=== PATIENT | male | born 1970 | race Caucasian/White ===

== ENCOUNTER 2019-05-28 10:02 | Observation (INO) ==
--- NOTE | 2019-05-28 10:08 | Emergency Department Note ---
Disposition Clinical Impression: Facial cellulitis Disposition: Admitted As Inpatient Condition: Good Time of Disposition: 13:30 Dental HPI - General Chief complaint: ED Dental/Oral Stated complaint: dental pain Time Seen by Provider: 05/28/19 10:08 Source: patient Mode of arrival: private vehicle Limitations: no limitations Nursing Notes Reviewed: Yes Vital Signs Reviewed: Yes - History of Present Illness HPI Narrative: 48-year-old male brought in today by his caregiver for some fevers chills and not feeling well at home. He is complaining of jaw and dental pain. He had 2 teeth pulled yesterday at [facility] in [facility]. She states that there is difficulty even getting him completely numbed. They told her there is no infection and they did not start him on any antibiotics. This morning he woke up and he just was not himself. He states that when he puts his teeth together it hurts. He states no other symptoms. She noted that he is more swollen on that right side of his face where the dental extractions were. Pt Subjective Complaint: dental pain - Related Data Home Medications Medication Instructions Recorded Confirmed lamoTRIgine [Lamictal] 50 mg PO BID 12/28/15 05/28/19 Divalproex (24 HR) [Depakote ER 1,500 mg PO BID 01/25/16 05/28/19 (24 HR)] Omeprazole [PriLOSEC] 20 mg PO DAILY 01/25/16 05/28/19 Aspirin [Lo-Dose Aspirin EC] 81 mg PO DAILY 01/14/19 05/28/19 Loratadine [Claritin] 10 mg PO DAILY 01/14/19 05/28/19 Metformin HCl [Fortamet] 1,000 mg PO DAILY 01/14/19 05/28/19 Previous Rx's Medication Instructions Recorded Gabapentin [Neurontin] 400 mg PO TID #90 capsule 04/30/16 [place] Carbonate 300 mg PO BID 365 Days 04/30/16 Potassium Chloride 10 meq PO DAILY #30 tab.er.prt 04/30/16 carBAMazepine [Tegretol] 400 mg PO BID tablet 04/30/16 Olopatadine HCl [Patanol] 1 drop OP BID #1 drops 06/16/17 Ondansetron ODT [Zofran ODT] 4 mg SL Q6HR PRN #8 tab.rapdis 01/14/19 Promethazine [Phenergan] 25 mg PO Q6HR PRN #16 tablet 01/14/19 Allergies Allergy/AdvReac Type Severity Reaction Status Date / Time Neomycin Allergy Hives Verified 01/14/19 09:02 oseltamivir [From Tamiflu] Allergy Hives Verified 01/14/19 09:02 Review of Systems: All other systems are negative except as noted/marked Chart generated with voice recognition software Nursing notes reviewed Old records reviewed Past Medical History - Past Medical History Attestation: Yes The following information was validated with the patient. Source: patient, old records reviewed, nursing notes reviewed Medical history: Reports: diabetes, hypertension, seizures, other Surgical history: Reports: orthopedic, other (Left arm surgery) Psychiatric history: Reports: no psych history - Social History Smoking Status: Never smoker Smokeless Tobacco Status: No Alcohol use: Reports: none Drug use: Reports: none Physical Exam - General Limitations: no limitations General appearance: alert, in no apparent distress - Head Head exam: normocephalic, normal inspection - Eye Eye exam: Present: normal appearance, PERRL, EOMI - ENT ENT exam: normal exam, normal oropharynx, mucous membranes moist, other (Patient has no bleeding at the site of extraction in the right mandible tenderness to palpation under the mount mandible with indurated skin, warm) - Neck Neck exam: Present: normal inspection, full ROM, trachea midline - Chest Chest inspection: Present: normal inspection, symmetric chest wall rise - Respiratory Respiratory exam: Present: normal lung sounds bilaterally - Cardiovascular Cardiovascular exam: Present: normal rhythm, tachycardia, normal heart sounds - Abdominal Exam Abdominal exam: Present: soft, Non-Tender, normal bowel sounds. Absent: tenderness, distention, guarding, rebound, rigidity - Extremities Exam Extremities exam: Present: normal inspection, full ROM, normal capillary refill. Absent: tenderness, pedal edema - Back Exam Back exam: Present: normal inspection, full ROM. Absent: tenderness - Neurological Exam Neurological exam: Present: alert, oriented X3, CN II-XII intact - Psychiatric Psychiatric exam: Present: normal affect, normal mood - Skin Skin exam: Present: warm, dry, intact, normal color Course Vital Signs Temperature 99.2 F 05/28/19 10:04 Pulse Rate 115 05/28/19 10:04 Respiratory Rate 18 05/28/19 10:04 Blood Pressure 128/80 05/28/19 10:04 O2 Sat by Pulse Oximetry 93 05/28/19 10:04 Temperature 99.2 F 05/28/19 10:04 Pulse Rate 90 05/28/19 13:32 Respiratory Rate 18 05/28/19 13:32 Blood Pressure 106/69 05/28/19 13:32 O2 Sat by Pulse Oximetry 94 05/28/19 13:32 Oxygen Delivery Oxygen Delivery Room Air Dental/Oral - MDM Narrative Medical decision making narrative: 48-year-old male presents today with some right-sided lower facial swelling and pain and fever since a dental extraction done yesterday. He has mild elevation of his white count and lactic is elevated. Given that he had some concern for infection versus ophthalmitis versus abscess on arrival lab work and CAT scans were ordered. Clindamycin was started patient was given a Apex for pain control. Patient developed some lightheadedness and funny feeling after receiving those medicines and may be a light rash over his face. Given some Be nadryl stop the clindamycin at that time. Unclear whether he was having a true reaction to the clindamycin refuses feeling funny from the Apex. We did give him some Zofran she felt a little nauseated. He is resting comfortably in his vitals have been stable since that time. His repeat lactic after a liter of fluid remained elevated. Given this I thought that he probably needed to come into the hospital for that facial cellulitis. I spoke with Dr. Resendez who agreed and would change his antibiotic for the next dose to a penicillin-based. - Medical Records Medical records reviewed: Yes I reviewed the patient's medical records. - Lab Data Lab results reviewed: Yes I reviewed the patient's lab results. Result diagrams: 05/28/19 10:35 05/28/19 10:35 Lab Results 05/28/19 05/28/19 05/28/19 Range/Units 10:35 10:35 10:35 WBC 7.9 (4.3-11.1) K/mcL RBC 4.81 (4.19-5.50) M/mcL Hgb 15.0 (12.9-16.9) g/dL Hct 45.1 (37.5-50.1) % MCV 93.8 (83.0-100.0) fL MCH 31.2 (28.0-33.3) pg MCHC 33.3 (31.6-35.5) g/dL RDW 13.9 (11.5-14.5) % Plt Count 254 (140-400) K/mcL MPV 9.3 L (9.4-12.4) fL Immature Gran % 0.3 (0-4) % Seg Neutrophils % 81.7 % Lymphocytes % 8.4 % Monocytes % 8.2 % Eosinophils % 0.9 % Basophils % 0.5 % Neutrophils # 6.5 (1.6-8.9) K/mcL Lymphocytes # 0.7 (0.6-4.6) K/mcL Monocytes # 0.7 (0.0-1.3) K/mcL Eosinophils # 0.1 (0.0-0.6) K/mcL Basophils # 0.0 (0.0-0.2) K/mcL PT 11.4 (9.4-12.1) Seconds INR 1.0 Sodium 138 (136-145) mEq/L Potassium 5.2 H (3.5-5.1) mEq/L Chloride 102 (98-107) mEq/L Carbon Dioxide 28 (23-29) mEq/L BUN 5 L (6-20) mg/dL Creatinine 1.00 (0.70-1.30) mg/dL Est GFR ( Amer) > 60 (> 60) Est GFR (Non-Af Amer) > 60 (> 60) BUN/Creatinine Ratio 5 L (6-26) Glucose 151 H (70-105) mg/dL Calculated Osmolality 286 (280-300) Lactic Acid (0.5-2.2) mmol/L Calcium 9.3 (8.6-10.3) mg/dL 05/28/19 05/28/19 Range/Units 10:35 12:05 WBC (4.3-11.1) K/mcL RBC (4.19-5.50) M/mcL Hgb (12.9-16.9) g/dL Hct (37.5-50.1) % MCV (83.0-100.0) fL MCH (28.0-33.3) pg MCHC (31.6-35.5) g/dL RDW (11.5-14.5) % Plt Count (140-400) K/mcL MPV (9.4-12.4) fL Immature Gran % (0-4) % Seg Neutrophils % % Lymphocytes % % Monocytes % % Eosinophils % % Basophils % % Neutrophils # (1.6-8.9) K/mcL Lymphocytes # (0.6-4.6) K/mcL Monocytes # (0.0-1.3) K/mcL Eosinophils # (0.0-0.6) K/mcL Basophils # (0.0-0.2) K/mcL PT (9.4-12.1) Seconds INR Sodium (136-145) mEq/L Potassium (3.5-5.1) mEq/L Chloride (98-107) mEq/L Carbon Dioxide (23-29) mEq/L BUN (6-20) mg/dL Creatinine (0.70-1.30) mg/dL Est GFR ( Amer) (> 60) Est GFR (Non-Af Amer) (> 60) BUN/Creatinine Ratio (6-26) Glucose (70-105) mg/dL Calculated Osmolality (280-300) Lactic Acid 2.4 H 2.3 H (0.5-2.2) mmol/L Calcium (8.6-10.3) mg/dL - Radiology Data Radiology results reviewed: Yes I reviewed the patient's radiology results. EXAMINATION: CT OF THE NECK SOFT TISSUE WITH CONTRAST 05/28/2019 TECHNIQUE: CT of the neck was performed with the administration of intravenous contrast. Multiplanar reformatted images are provided for review. Dose modulation, iterative reconstruction, and/or weight based adjustment of the mA/kV was utilized to reduce the radiation dose to as low as reasonably achievable. COMPARISON: None. HISTORY: ORDERING SYSTEM PROVIDED HISTORY: recent dental extraction, fever, swelling R mandib 75 ml of iosovue 370 FINDINGS: PHARYNX/LARYNX: The nasopharynx, oral cavity, oropharynx, hypopharynx, and laryngeal structures are unremarkable. No evidence of retropharyngeal fluid, or abscess. Evaluation of the oral cavity and oropharynx is somewhat limited due to extensive streak artifact from dental amalgam. SALIVARY GLANDS/THYROID: The parotid glands, and submandibular glands are unremarkable. Thyroid gland appears unremarkable. LYMPH NODES: No evidence of significant cervical lymphadenopathy. No evidence of supraclavicular lymphadenopathy. SOFT TISSUES: Small amount of soft tissue swelling is noted along the right mandible. No convincing evidence of sizable fluid collection within limitation of this examination. There is extensive streak artifact adjacent to the mandible. BRAIN/ORBITS/SINUSES: No gross evidence of acute abnormality within the visualized portion of the brain. Mucosal thickening within right maxillary sinus. No significant mastoid opacification. No evidence of air-fluid levels in the visualized portion of the paranasal sinuses. The orbits are unremarkable. There is retropharyngeal course of the carotid arteries bilaterally. LUNG APICES/SUPERIOR MEDIASTINUM: Nonspecific ground-glass pulmonary opacities at the lung apices bilaterally. No significant superior mediastinal lymphadenopathy. BONES: Multiple empty sockets involving the mandible bilaterally. There are also empty sockets involving the maxilla. Patient reports recent dental extractions. CT/CT soft tissue neck w con IMPRESSION: Small amount of soft tissue swelling along the right mandible, without evidence of discrete drainable abscess. Please note evaluation is limited due to streak artifact from dental amalgam. Multiple empty tooth sockets involving maxillary and mandibular teeth, with history of dental extractions. Nonspecific ground-glass pulmonary opacities at the lung apices. Findings may represent mild interstitial edema with possibility of atypical infection not excluded. D/ / 05/28/2019 13:23:11 Eldon Pichardo MD / magn[employer] Interpreting Provider: Eldon Pichardo MD
[2019-05-28] MEDS ORDERED: 0.9 % Sodium Chloride 1,000 ML IV ONE (10:17)
[2019-05-28] MEDS ORDERED: *HR* HYDROcodone/Acet 5/325 mg TABLET PO ONE (10:17)
[2019-05-28] MEDS ORDERED: Clindamycin 900 MG/50 ML 900 MG/50 ML IV.SOLN IVPB ONE (10:17)
[2019-05-28] MEDS ORDERED: Isovue-370 500 ML BOTTLE IVP ONE (10:17)
[2019-05-28 10:44] LABS: Basophils % 0.5 %; Eosinophils # 0.1 K/mcL (0.0-0.6); Eosinophils % 0.9 %; Hematocrit 45.1 % (37.5-50.1); Immature Granulocytes % 0.3 % (0-4); Lymphocytes # 0.7 K/mcL (0.6-4.6); Lymphocytes % 8.4 %; Mean Corpuscular HGB Conc 33.3 g/dL (31.6-35.5); Mean Corpuscular Hemoglobin 31.2 pg (28.0-33.3); Mean Corpuscular Volume 93.8 fL (83.0-100.0); Mean Platelet Volume 9.3 fL (9.4-12.4); Monocytes # 0.7 K/mcL (0.0-1.3); Monocytes % 8.2 %; Neutrophils # 6.5 K/mcL (1.6-8.9); Platelet Count 254 K/mcL (140-400); Red Blood Count 4.81 M/mcL (4.19-5.50); Red Cell Distribution Width 13.9 % (11.5-14.5); Segmented Neutrophils % 81.7 %; White Blood Count 7.9 K/mcL (4.3-11.1)
[2019-05-28 10:52] LABS: Prothrombin Time 11.4 Seconds (9.4-12.1)
[2019-05-28 11:00] LABS: BUN/Creatinine Ratio 5 (6-26); Blood Urea Nitrogen 5 mg/dL (6-20); Calcium 9.3 mg/dL (8.6-10.3); Carbon Dioxide 28 mEq/L (23-29); Chloride 102 mEq/L (98-107); Glucose 151 mg/dL (70-105); Osmolality,Calculated 286 (280-300); Potassium 5.2 mEq/L (3.5-5.1); Sodium 138 mEq/L (136-145); eGFR For African Americans > 60 (> 60); eGFR For Non-African Americans > 60 (> 60)
[2019-05-28] MEDS ORDERED: Ondansetron 4 MG/2 ML VIAL IVP STA (11:26)
[2019-05-28] MEDS ORDERED: Mag Hydrox/Al Hydrox/Simeth 30 ML UDC PO PRN (13:58)
[2019-05-28] MEDS ORDERED: Naloxone 0.4 MG/ML INJ IVP PRN (13:58)
[2019-05-28] MEDS ORDERED: Ondansetron 4 MG/2 ML VIAL IVP PRN (13:58)
[2019-05-28] MEDS ORDERED: Ibuprofen 400 MG TABLET PO PRN (13:58)
[2019-05-28] MEDS ORDERED: traMADol 50 MG TABLET PO PRN (13:58)
[2019-05-28] MEDS ORDERED: 0.9 % Sodium Chloride 1,000 ML IVC SCH (13:58)
[2019-05-28] MEDS ORDERED: MOM Conc 10 ML UD.LIQ PO PRN (13:58)
[2019-05-28] MEDS: Gabapentin 400 MG CAPSULE PO SCH ×2 (14:54→20:38)
[2019-05-28] MEDS: Piperacillin/Tazobactam 3.375 GM in 0.9 % Sodium Chloride Mini Bag 100 ML IVPB SCH (14:54)
[2019-05-28] MEDS: *HR* Metformin 500 MG TABLET PO SCH (16:14)
[2019-05-28] MEDS: lamoTRIgine 25 MG TABLET PO SCH (20:38)
[2019-05-28] MEDS: Lactobacillus 1 EACH CAP.SPRINK PO SCH (20:38)
[2019-05-28] MEDS: carBAMazepine 200 MG TABLET PO SCH (20:38)
[2019-05-28] MEDS: Lithium Carbonate 300 MG CAPSULE PO SCH (20:38)
[2019-05-28] MEDS: [UNRECOGNIZED DRUG - OTHER] OP SCH (20:39)
[2019-05-28] MEDS ORDERED: Divalproex (12 HR) 250 MG TABLET PO SCH (21:00)
[2019-05-29] MEDS: Piperacillin/Tazobactam 3.375 GM in 0.9 % Sodium Chloride Mini Bag 100 ML IVPB SCH (00:03)
[2019-05-29 06:24] VITALS: BP 102/64
[2019-05-29 08:02] LABS: Basophils % 0.5 %; Eosinophils # 0.1 K/mcL (0.0-0.6); Eosinophils % 1.5 %; Hematocrit 38.9 % (37.5-50.1); Hemoglobin 12.4 g/dL (12.9-16.9); Immature Granulocytes % 0.5 % (0-4); Lymphocytes # 1.8 K/mcL (0.6-4.6); Lymphocytes % 32.5 %; Mean Corpuscular HGB Conc 31.9 g/dL (31.6-35.5); Mean Corpuscular Volume 97.3 fL (83.0-100.0); Mean Platelet Volume 9.5 fL (9.4-12.4); Monocytes # 0.6 K/mcL (0.0-1.3); Monocytes % 10.8 %; Platelet Count 213 K/mcL (140-400); Red Cell Distribution Width 14.3 % (11.5-14.5); Segmented Neutrophils % 54.2 %; White Blood Count 5.5 K/mcL (4.3-11.1)
[2019-05-29 08:19] LABS: BUN/Creatinine Ratio 6 (6-26); Blood Urea Nitrogen 6 mg/dL (6-20); Calcium 8.5 mg/dL (8.6-10.3); Carbon Dioxide 31 mEq/L (23-29); Chloride 107 mEq/L (98-107); Glucose 118 mg/dL (70-105); Osmolality,Calculated 293 (280-300); Potassium 4.6 mEq/L (3.5-5.1); Sodium 142 mEq/L (136-145); eGFR For African Americans > 60 (> 60); eGFR For Non-African Americans > 60 (> 60)
--- NOTE | 2019-05-29 08:24 | Internal Med History&Physical ---
Date of Encounter: 05/29/19 Time of Encounter: 07:55 Assessment and Plan (1) Dental infection Current visit: Yes Status: Acute He was given IV clindamycin in emergency room but had possible allergic reaction. Clindamycin was discontinued and he was given Benadryl and changed to IV Zosyn. He states he feels significantly improved at present time and stable for discharge home. Internal Medicine - H&P: HPI Chief complaint: Chills Admitted From: Emergency Dept Plans for Post Hospital Care: Home History of present illness: Mr. Rodas is a 48 year old male who came to emergency room stating he had trouble teeth extracted . On Friday morning he awakened with "teeth chattering" and felt chilled. He reports he was not given antibiotics at the time of extraction. He was evaluated in emergency room where CBC showed normal WBC but left shift present. Lactic acid was elevated at 2.4. He was given a dose of IV clindamycin and admitted to [facility] floor for ongoing care needs. He states he feels improved now and back to his baseline except for slight "tooth pain". Past Med Surg Social Fam HX - Past Medical History Medical history: diabetes, hypertension, seizures, other Additional medical history: developmental delayed Psychiatric history: no psych history - Past Surgical History Surgical History: orthopedic, other (Left arm surgery) Additional surgical history: left arm. PT STATES HE SWALLOWED A CRAYON AND HAD TO HAVE IT SURGICALLY REMOVED - Social History Smoking Status: Never smoker Smokeless Tobacco Status: No Alcohol use: none Drug use: none - Family History Father Family Member Ethnicity: Non- Living Status: Still Living Hx Family Cardiac Disorders: No Hx Family Respiratory Disorders: No Hx Family Cancer: No Hx Family GI Disorders: No Hx Family Endocrine Disorder: No Hx Family Neuromuscular Disorders: No Hx Family Neurologic Disorders: No Hx Family HEENT Disorders: No Hx Family Autoimmune Disorders: No Internal Medicine - H&P: Meds lamoTRIgine [Lamictal] 50 mg PO BID 12/28/15 [History] Divalproex (24 HR) [Depakote ER (24 HR)] 1,500 mg PO BID 01/25/16 [History] Omeprazole [PriLOSEC] 20 mg PO DAILY 01/25/16 [History] Gabapentin [Neurontin] 400 mg PO TID #90 capsule 04/30/16 [Rx] [place] Carbonate 300 mg PO BID 365 Days 04/30/16 [Rx] Potassium Chloride 10 meq PO DAILY #30 tab.er.prt 04/30/16 [Rx] carBAMazepine [Tegretol] 400 mg PO BID tablet 04/30/16 [Rx] Olopatadine HCl [Patanol] 1 drop OP BID #1 drops 06/16/17 [Rx] Aspirin [Lo-Dose Aspirin EC] 81 mg PO DAILY 01/14/19 [History] Loratadine [Claritin] 10 mg PO DAILY 01/14/19 [History] Metformin HCl [Fortamet] 1,000 mg PO DAILY 01/14/19 [History] Ondansetron ODT [Zofran ODT] 4 mg SL Q6HR PRN #8 tab.rapdis 01/14/19 [Rx] Promethazine [Phenergan] 25 mg PO Q6HR PRN #16 tablet 01/14/19 [Rx] Allergy/AdvReac Type Severity Reaction Status Date / Time Neomycin Allergy Hives Verified 01/14/19 09:02 oseltamivir [From Tamiflu] Allergy Hives Verified 01/14/19 09:02 Poison Radha Extract Allergy Rash Verified 05/28/19 14:34 All Systems PM: A 10-system review of systems was performed and is negative for pertinent findings except as documented above in the HPI. Review of systems: Review of systems from his December 2015 [facility] hospitalization were reviewed and revised as below. Gen.: His weight has remained stable at approximately 140 kg since December 2015 hospitalization. Cardiovascular: Denies hypertension [place] heart failure angina DVT or pulmonary embolus. Respiratory: He is a lifelong nonsmoker and has no known chronic lung disease. GI: Denies disorders of his liver gallbladder or exocrine pancreas : Denies hematuria dysuria or kidney stones Neurologic: He states he has history of seizures. He reports his last seizure was several years ago. He denies large distribution strokes. Endocrine: Denies known diabetes thyroid disease or hyperlipidemia Hematology/oncology: Denies blood disorders cancers or anemia. Psychiatric: He follows at mental health clinic but is uncertain of his diag nosis. [place] skeletal: He denies known gout arthritis or osteoporosis - Constitutional Vitals: Temp Pulse Resp BP Pulse Ox 98.3 F 74 20 102/64 96 05/29/19 06:21 05/29/19 06:21 05/29/19 06:21 05/29/19 06:21 05/29/19 06:21 Exam: Gen.: He is a well-developed obese male lying in bed who appears in no acute d istress HEENT: Head is atraumatic and normocephalic. Eyes: EOMI. There is no scleral icterus. Mouth: Mucosa is moist. He has had multiple dental extractions. Recent extractions sites show no drainage. Neck: Supple and nontender. There is no thyromegaly or adenopathy noted. Heart: Regular without murmurs gallops or ectopics. Lungs: No wheezes or crackles are heard. Abdomen: Soft and nontender. No masses or guarding are noted. Extremities: There is no cyanosis edema or clubbing noted. Dorsalis pedis and posterior tibial pulses are 1-2 over 2 bilaterally. Neurologic: Mental status: He is talkative and a fair historian. He does not know some details of his medical history. Cranial nerves: Smile is symmetric. Forehead wrinkles bilaterally. Tongue protrudes midline. EOMI. Motor: There is no pronator drift. Cerebellar: Finger to nose is intact bilaterally. Skin: Warm and dry Internal Med - H&P Results - Labs CBC & Chem 7: 05/29/19 07:49 05/29/19 07:49 Labs: Short CBC 05/28/19 05/29/19 Range/Units 10:35 07:49 WBC 7.9 5.5 (4.3-11.1) K/mcL Hgb 15.0 12.4 L D (12.9-16.9) g/dL Hct 45.1 38.9 (37.5-50.1) % Plt Count 254 213 (140-400) K/mcL Neutrophils # 6.5 3.0 (1.6-8.9) K/mcL BMP 05/28/19 05/29/19 10:35 07:49 Sodium 138 142 Potassium 5.2 H 4.6 Chloride 102 107 Carbon Dioxide 28 31 H BUN 5 L 6 Creatinine 1.00 1.00 Glucose 151 H 118 H Calcium 9.3 8.5 L - Impressions ITS Impressions Soft Tissue Neck CT 05/28/19 10:17 IMPRESSION: Small amount of soft tissue swelling along the right mandible, without evidence of discrete drainable abscess. Please note evaluation is limited due to streak artifact from dental amalgam. Multiple empty tooth sockets involving maxillary and mandibular teeth, with history of dental extractions. Nonspecific ground-glass pulmonary opacities at the lung apices. Findings may represent mild interstitial edema with possibility of atypical infection not excluded. D/ / 05/28/2019 13:23:11 Eldon Pichardo MD / [employer] Interpreting Provider: Eldon Pichardo MD
--- NOTE | 2019-05-29 08:36 | Discharge Summary ---
Orders not resulted at time of discharge: Pending orders 05/28/19 10:35 Culture,Blood [BC] Stat Date of Encounter: 05/29/19 Time of Encounter: 07:55 - Discharge Diagnosis (1) Dental infection Priority: Primary Status: Acute Hospital course: Mr. Rodas is a 48 year old male who came to emergency room stating he had trouble teeth extracted . On Friday morning he awakened with "teeth chattering" and felt chilled. He reports he was not given antibiotics at the time of extraction. He was evaluated in emergency room where CBC showed normal WBC but left shift present. Lactic acid was elevated at 2.4. He was given a dose of IV clindamycin and admitted to [facility] floor for ongoing care needs. Initial orders were written by the emergency room physician. I saw him on May 29 and performed a history physical and discharge. He was started on IV Zosyn following a single dose of IV clindamycin in emergency room. Follow-up lactic acid level showed normalization to 1.7. WBC on May 29 was normal at 5.5 with resolution of left shift. There were no new problems and he felt improved and stable for discharge home. He will be given antibiotic and probiotic for 5 additional days at discharge. He will follow up with his dentist as directed. - Time Spent with Patient Total time spent providing and/or coordinating discharge services: - Discharge Medications Prescriptions: New Amoxicillin/Clavulanate [Augmentin] 875 mg PO BIDWM #10 tablet Lactobacillus [Culturelle] 1 each PO BID #10 cap.sprink Continued Olopatadine HCl [Patanol] 1 drop OP BID #1 drops lamoTRIgine [Lamictal] 50 mg PO BID Divalproex (24 HR) [Depakote ER (24 HR)] 1,500 mg PO BID Omeprazole [PriLOSEC] 20 mg PO DAILY carBAMazepine [Tegretol] 400 mg PO BID tablet Gabapentin [Neurontin] 400 mg PO TID #90 capsule [place] Carbonate 300 mg PO BID 365 Days Potassium Chloride 10 meq PO DAILY #30 tab.er.prt Aspirin [Lo-Dose Aspirin EC] 81 mg PO DAILY Metformin HCl [Fortamet] 1,000 mg PO DAILY Loratadine [Claritin] 10 mg PO DAILY Ondansetron ODT [Zofran ODT] 4 mg SL Q6HR PRN #8 tab.rapdis PRN Reason: Nausea Promethazine [Phenergan] 25 mg PO Q6HR PRN #16 tablet PRN Reason: Nausea Home Medications: lamoTRIgine [Lamictal] 50 mg PO BID 12/28/15 [History] Divalproex (24 HR) [Depakote ER (24 HR)] 1,500 mg PO BID 01/25/16 [History] Omeprazole [PriLOSEC] 20 mg PO DAILY 01/25/16 [History] Gabapentin [Neurontin] 400 mg PO TID #90 capsule 04/30/16 [Rx] [place] Carbonate 300 mg PO BID 365 Days 04/30/16 [Rx] Potassium Chloride 10 meq PO DAILY #30 tab.er.prt 04/30/16 [Rx] carBAMazepine [Tegretol] 400 mg PO BID tablet 04/30/16 [Rx] Olopatadine HCl [Patanol] 1 drop OP BID #1 drops 06/16/17 [Rx] Aspirin [Lo-Dose Aspirin EC] 81 mg PO DAILY 01/14/19 [History] Loratadine [Claritin] 10 mg PO DAILY 01/14/19 [History] Metformin HCl [Fortamet] 1,000 mg PO DAILY 01/14/19 [History] Ondansetron ODT [Zofran ODT] 4 mg SL Q6HR PRN #8 tab.rapdis 01/14/19 [Rx] Promethazine [Phenergan] 25 mg PO Q6HR PRN #16 tablet 01/14/19 [Rx] Amoxicillin/Clavulanate [Augmentin] 875 mg PO BIDWM #10 tablet 05/29/19 [Rx] Lactobacillus [Culturelle] 1 each PO BID #10 cap.sprink 05/29/19 [Rx] Allergies/Adverse Reactions: Allergy/AdvReac Type Severity Reaction Status Date / Time Neomycin Allergy Hives Verified 01/14/19 09:02 oseltamivir [From Tamiflu] Allergy Hives Verified 01/14/19 09:02 Poison Radha Extract Allergy Rash Verified 05/28/19 14:34 Date of admission: 05/28/19 13:42 Primary care physician: Barrera Duenas, DO - Constitutional Vitals: Temp Pulse Resp BP Pulse Ox 98.3 F 74 20 102/64 96 05/29/19 06:21 05/29/19 06:21 05/29/19 06:21 05/29/19 06:21 05/29/19 06:21 - Patient Status Disposition: Home Health Service Condition: Good - Discharge Instructions Follow Up With: Barrera Duenas DO [Primary Care Provider] - 1 week - Diet and Activity Activity: resume usual activities as tolerated Diet: advance to your usual diet
[2019-05-29] MEDS: Gabapentin 400 MG CAPSULE PO SCH (08:41)
[2019-05-29] MEDS: carBAMazepine 200 MG TABLET PO SCH (08:42)
[2019-05-29] MEDS: *HR* Metformin 500 MG TABLET PO SCH (08:42)
[2019-05-29] MEDS: Lithium Carbonate 300 MG CAPSULE PO SCH (08:42)
[2019-05-29] MEDS: lamoTRIgine 25 MG TABLET PO SCH (08:42)
[2019-05-29] MEDS: Lactobacillus 1 EACH CAP.SPRINK PO SCH (08:42)
[2019-05-29] MEDS: [UNRECOGNIZED DRUG - OTHER] OP SCH (08:43)
[2019-05-29] MEDS ORDERED: Aspirin Enteric Coated 81 MG Tablet PO SCH (09:00)
== END 2019-05-29 09:35 | disposition home health service (06) ==
LOC: INPPIK 10:02 → EMEROOPIK 10:02 → INPPIK 14:08
PROVIDERS: ADMIT Internal Medicine; ATTEND Internal Medicine